=== PATIENT | female | born 1965 | race African-American/Black ===

== ENCOUNTER 2023-08-12 08:16 | Observation (INO) | payer BC, OTHER ==
--- OUTSIDE RECORDS SUMMARY | 2023-08-12 08:19 | XMS REPORT | Continuity of Care Document ---
Author Name Unknown Address [address] [place] [address] [address] [place] [address] [facility] Address [address] [facility]. 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 Name Role Phone [email or web address] Attending Clinician Aldena ble [email or web address] Admitting Clinician Unavaila ble Payers Payer Name Policy Type Policy Number Effective Date Expirati on Date Source [place] [id number] 2022 00:00:00 Encounters Start Date/Time End Date/Time Encounter Type Admission Type Attending Clinicians Care Facility Care Department Encounter ID Source 2023-03-24 00:00:00 2023-03-24 00:00:00 Outpatient [email or web address] [email or web address]_S PRIV PRIV [id number] [facility] 2023-02-12 00:00:00 2023-02-12 00:00:00 Outpatient [email or web address] [email or web address]_S PRIV PRIV [id number] [facility] 2023-02-12 00:00:00 2023-02-12 00:00:00 Outpatient [email or web address] diyala_S PRIV PRIV [id number] [facility] 2023-02-09 00:00:00 2023-02-09 00:00:00 Outpatient [email or web address] diyala_S PRIV PRIV [id number] [facility] 2023-02-09 00:00:00 2023-02-09 00:00:00 Outpatient [email or web address] diyala_S PRIV PRIV [id number] [facility] 2023-01-06 00:00:00 2023-01-06 00:00:00 Outpatient [email or web address]_Ka robert_Kelsie [facility] [id number] [facility]
[2023-08-12] MEDS ORDERED: FAMOTIDINE 20 MG/2 ML VIAL IV ONE (08:43)
--- NOTE | 2023-08-12 08:56 | RAD REPORT ---
EXAM DESCRIPTION: RAD - Chest Single View - 08/12/2023 8:49 am CLINICAL HISTORY: Chest pain;SOB COMPARISON: CHEST PA AND LAT 2 VIEW dated 03/05/2009 FINDINGS: Lines: None. Lungs: No evidence of edema or pneumonia. Pleural: No significant pleural effusions or pneumothorax. Cardiac: The heart size is within normal limits. Mediastinum: Within normal limits. Bones: No acute fractures. Other: None IMPRESSION: No acute cardiopulmonary disease.
[2023-08-12 08:58] LABS: Absolute Basophils 0.1 K/uL (0-0.5); Absolute Eosinophils 0.1 K/uL (0-0.5); Absolute Monocytes 0.8 K/uL (0.1-1.3); Absolute Neutrophil 6.1 K/uL (1.8-8.0); Basophils % 0.6 % (0-1.3); Eosinophils % 0.9 % (0-4.4); Hemoglobin 12.3 g/dL (12.0-15.0); Lymphocytes % 22.5 % (15.3-44.8); MCH 30.1 pg (27.0-35.0); MCHC 34.1 g/dL (32.0-36.0); MCV 88.3 fL (80-100); MPV 7.2 fL (7.6-11.3); Monocytes % 8.4 % (3.3-12.3); Neutrophils % 67.6 % (41.7-73.7); Nucleated Red Blood Cells % 0.1 % (0-0); Platelets 390 thou/uL (152-406); RBC Red Blood Cell Count 4.08 M/uL (3.86-4.86); Red Cell Distribution Width 14.2 % (12.1-15.2)
[2023-08-12 08:59] LABS: PT Prothrombin Time 13.3 SECONDS (9.5-12.5); Protime INR 1.22
--- NOTE | 2023-08-12 09:12 | EDPHYS ---
Physician Documentation [facility] Name: Kinjal Vázquez Age: 57 yrs Sex: Female : 1965 Arrival Date: 08/12/2023 Time: 08:16 Bed 6 Private MD: ED Physician Jethro Balderas HPI: 08/11 08:48 This 57 yrs old Black Female presents to ER via EMS with complaints of Chest Pain. [facility] 08:48 The patient or guardian reports chest pain that is located primarily in the substernal kaiser area. Onset: just prior to arrival. The pain does not radiate. Associated signs and symptoms: Pertinent positives: nausea. The chest pain is described as a pressure. Modifying factors: The symptoms are alleviated by nothing. the symptoms are aggravated by nothing. Historical: - Allergies: 08:26 No Known Allergies; iw - Home Meds: 10:13 losartan 50 mg oral tablet daily [Active]; iw - PMHx: 08:26 Hypertensive disorder; Hypercholesterolemia; iw - Immunization history:: Adult Immunizations up to date. - Family history:: not pertinent. - Social history:: Smoking status: Patient denies any tobacco usage or history of. ROS: 08:55 Constitutional: Negative for fever, chills, and weight loss, Eyes: Negative for injury, kaiser pain, redness, and discharge, ENT: Negative for injury, pain, and discharge, Neck: Negative for injury, pain, and swelling, Respiratory: Negative for shortness of breath, cough, wheezing, and pleuritic chest pain, Abdomen/GI: Negative for abdominal pain, nausea, vomiting, diarrhea, and constipation, Back: Negative for injury and pain, : Negative for injury, bleeding, discharge, and swelling, MS/Extremity: Negative for injury and deformity, Skin: Negative for injury, rash, and discoloration, Neuro: Negative for headache, weakness, numbness, tingling, and seizure, Psych: Negative for depression, anxiety, suicide ideation, homicidal ideation, and hallucinations, Allergy/Immunology: Negative for hives, rash, and allergies, Endocrine: Negative for neck swelling, polydipsia, polyuria, polyphagia, and marked weight changes, Hematologic/Lymphatic: Negative for swollen nodes, abnormal bleeding, and unusual bruising, 08:55 Cardiovascular: Positive for chest pain, of the chest, Exam: 09:04 Constitutional: This is a well developed, well nourished patient who is awake, alert, kaiser and in no acute distress. Head/Face: Normocephalic, atraumatic. Eyes: Pupils equal round and reactive to light, extra-ocular motions intact. Lids and lashes normal. Conjunctiva and sclera are non-icteric and not injected. Cornea within normal limits. Periorbital areas with no swelling, redness, or edema. ENT: Nares patent. No nasal discharge, no septal abnormalities noted. Tympanic membranes are normal and external auditory canals are clear. Oropharynx with no redness, swelling, or masses, exudates, or evidence of obstruction, uvula midline. Mucous membranes moist. Neck: Trachea midline, no thyromegaly or masses palpated, and no cervical lymphadenopathy. Supple, full range of motion without nuchal rigidity, or vertebral point tenderness. No Meningismus. Chest/axilla: Normal chest wall appearance and motion. Nontender with no deformity. No lesions are appreciated. Cardiovascular: Regular rate and rhythm with a normal S1 and S2. No gallops, murmurs, or rubs. Normal PMI, no JVD. No pulse deficits. Respiratory: Lungs have equal breath sounds bilaterally, clear to auscultation and percussion. No rales, rhonchi or wheezes noted. No increased work of breathing, no retractions or nasal flaring. Abdomen/GI: Soft, non-tender, with normal bowel sounds. No distension or tympany. No guarding or rebound. No evidence of tenderness throughout. Back: No spinal tenderness. No costovertebral tenderness. Full range of motion. Female : Normal external genitalia. Skin: Warm, dry with normal turgor. Normal color with no rashes, no lesions, and no evidence of cellulitis. MS/ Extremity: Pulses equal, no cyanosis. Neurovascular intact. Full, normal range of motion. Neuro: Awake and alert, GCS 15, oriented to person, place, time, and situation. Cranial nerves II-XII grossly intact. Motor strength 5/5 in all extremities. Sensory grossly intact. Cerebellar exam normal. Normal gait. Psych: Awake, alert, with orientation to person, place and time. Behavior, mood, and affect are within normal limits. 09:23 ECG was reviewed by the Attending Physician. [facility] 09:24 ECG was reviewed by the Attending Physician. [facility] Vital Signs: 08:25 BP 135 / 81; Pulse 66; Resp 18; Temp 97.9; Pulse Ox 100% on R/A; Weight 80.29 kg; iw Height 5 ft. 7 in. ; Pain 0/10; 09:17 BP 131 / 76; Pulse 74; Resp 16; Pulse Ox 100% on R/A; Pain 8/10; iw 08:25 Body Mass Index 27.72 (80.29 kg, 170.18 cm) iw 08:25 Pain Scale: Adult iw 09:17 Pain Scale: Adult iw MDM: 08:36 Patient medically screened. kaiser 09:07 Differential diagnosis: abnormal EKG, acute myocardial infarction, acute pericarditis, kaiser anxiety, coronary artery disease chest wall pain, costochondritis, gastroesophageal reflux disease (GERD), hiatal hernia, pancreatitis, peptic ulcer disease, pleurisy, pulmonary embolus, stable angina, thoracic aortic disection, unstable angina. HEART Score: History: Moderately Suspicious (1), ECG: Normal (0), Age: > 45 and < 65 years (1), Risk Factors: > or = 3 Risk factors for atherosclerotic disease (2), [Hypercholesterolemia] [Hypertension] [+ Family HX] [Obesity] Troponin: < or = 1 x Normal Limit (0). The patient was given aspirin in the Emergency Department. ANTHONY Risk Score: 1 - Three or more CAD risk factors, 1 - Recent [<24hrs] Severe Angina, TOTAL SCORE = 2. Data reviewed: vital signs, nurses notes, EMS record, lab test result(s), EKG, radiologic studies, plain films. Consideration of Admission/Observation Patient was admitted/placed on observation. Escalation of care including admission/observation considered. I considered the following discharge prescriptions or medication management in the emergency department Medications were administered in the Emergency Department. See MAR. Test considered but Not performed: Ultrasound no 2 d echo. 08/11 08:19 Order name: Basic Metabolic Panel; Complete Time: 10: eb 08/11 08:19 Order name: CBC with Diff; Complete Time: 09:24 eb 08/11 08:19 Order name: LFT's; Complete Time: 10: eb 08/11 08:19 Order name: Magnesium; Complete Time: :08/11 08:19 Order name: NT PRO-BNP; Complete Time: 10: eb 08/11 08:19 Order name: PT-INR; Complete Time: 09:24 eb 08/11 08:19 Order name: Troponin HS; Complete Time: 10:22 eb 08/11 08:19 Order name: Lipase; Complete Time: 10:22 eb 08/11 08:38 Order name: Urinalysis w/ reflexes; Complete Time: 10:22 [facility] 08/11 10:23 Order name: Urine Culture [facility] 08/11 12:15 Order name: Potassium [facility] 08/11 12:15 Order name: Troponin High Sensitivity [facility] 08/11 08:19 Order name: XRAY Chest (1 view); Complete Time: 09:24 eb 08/11 09:23 Order name: CT Aorta for Dissection [facility] 08/11 10:18 Order name: CT; Complete Time: 10:22 [facility] 08/11 10:23 Order name: US Abdomen Limited [facility] 08/11 11:38 Order name: US; Complete Time: 12:06 [facility] 08/11 08:19 Order name: EKG; Complete Time: 08:20 08/11 09:11 Order name: EKG; Complete Time: 09:11 [facility] 08/11 09:18 Order name: CONS Physician Consult [facility] 08/11 08:19 Order name: Cardiac monitoring; Complete Time: 08:44 eb 08/11 08:19 Order name: EKG - Nurse/Tech; Complete Time: 08:25 eb 08/11 08:19 Order name: IV Saline Lock; Complete Time: 08:47 eb 08/11 08:19 Order name: Labs collected and sent; Complete Time: 08:47 08/11 08:19 Order name: O2 Per Protocol; Complete Time: 08:44 eb 08/11 08:19 Order name: O2 Sat Monitoring; Complete Time: 08:44 eb 08/11 09:11 Order name: EKG - Nurse/Tech; Complete Time: 09:16 [facility] EC:23 Rate is 65 beats/min. Rhythm is regular. QRS Cornish is Normal. CT interval is normal. QRS kaiser interval is normal. QT interval is normal. No Q waves. T waves are Normal. No ST changes noted. Clinical impression: Normal ECG and No evidence of ischemia. Interpreted by me. Reviewed by me. 09:24 Rate is 67 beats/min. Rhythm is regular. QRS Cornish is Normal. CT interval is normal. QRS kaiser interval is normal. QT interval is normal. No Q waves. T waves are Normal. No ST changes noted. Clinical impression: Normal ECG and No evidence of ischemia. Interpreted by me. Reviewed by me. Administered Medications: 08:53 Drug: Famotidine IVP 20 mg IVP once; dilute with 10 mL 0.9% NaCl; give over 2 minutes iw Route: IVP; Site: right antecubital; 09:30 Follow up: Response: No adverse reaction iw 10:51 Drug: Enoxaparin Sub-Q 1 mg/kg Sub-Q once Route: Sub-Q; Site: right lower abdomen; iw 11:20 Follow up: Response: No adverse reaction iw 11:27 Not Given (Patient Refused): morphineor iv 4 mg IVP once over 4 mins iw 11:27 Not Given (Patient Refused): ondansetron 4 mg IVP once; over 2 minutes iw 12:35 Drug: Rocephin IV 1 grams IV at per protocol once; Given slow IV push per pharmacy iw instructions Route: IV; Rate: per protocol; Site: right antecubital; 12:40 Follow up: IV Status: Completed infusion iw Disposition Summary: 08/12/23 09:12 Hospitalization Ordered Notes: Hospitalization Status: Observation kaiser Provider: Madan Nina kaiser Condition: Fair kaiser Problem: new kaiser Symptoms: have improved kaiser Bed/Room Type: Standard kaiser Location: Telemetry/MedSurg (observation)(08/12/23 12:28) eb Room Assignment: [facility](08/12/23 12:28) eb Diagnosis - Chest pain, unspecified kaiser - Angina pectoris, unspecified kaiser - UTI/ Urinary tract infection, site not specified kaiser - Other cholelithiasis without obstruction - SLUDGE kaiser Forms: - Medication Reconciliation Form kaiser - SBAR form kaiser - Leadership Thank You Letter kaiser Signatures: Dispatcher [employer] Jethro Mora MD MD cha Williams, Irene, RN RN iw Svetlana Hines Corrections: (The following items were deleted from the chart) 09:47 09:12 kaiser eb 10:17 09:12 Telemetry/MedSurg (observation) kaiser eb 10:17 09:47 416 eb eb 10:17 10:17 eb eb 12:28 10:17 [facility] ER HOLD eb eb 12:28 10:17 ERHOLD- eb eb
--- NOTE | 2023-08-12 09:12 | ER ---
Nurse's Notes [facility] Name: Kinjal Vázquez Age: 57 yrs Sex: Female : 1965 Arrival Date: 08/12/2023 Time: 08:16 Bed 6 Private MD: Diagnosis: Chest pain, unspecified;Angina pectoris, unspecified;UTI/ Urinary tract infection, site not specified;Other cholelithiasis without obstruction-SLUDGE Presentation: 08/11 08:26 Chief complaint: Patient states: woke up with midsternal chest pain , felt like iw pressure and indigestion, EMS gave [address] [employer], pain now 0/10. Coronavirus screen: At this time, the client does not indicate any symptoms associated with coronavirus-19. Ebola Screen: Patient negative for fever greater than or equal to 101.5 degrees Fahrenheit, and additional compatible Ebola Virus Disease symptoms Patient denies exposure to infectious person. Patient denies travel to an Ebola-affected area in the 21 days before illness onset. No symptoms or risks identified at this time. Initial Sepsis Screen: Does the patient meet any 2 criteria? No. Patient's initial sepsis screen is negative. Does the patient have a suspected source of infection? No. Patient's initial sepsis screen is negative. Risk Assessment: Do you want to hurt yourself or someone else? Patient reports no desire to harm self or others. Onset of symptoms was August 12, 2023. 08:26 Method Of Arrival: [facility] iw 08:26 Acuity: GRAEME 3 iw Historical: - Allergies: 08:26 No Known Allergies; iw - Home Meds: 10:13 losartan 50 mg oral tablet daily [Active]; iw - PMHx: 08:26 Hypertensive disorder; Hypercholesterolemia; iw - Immunization history:: Adult Immunizations up to date. - Family history:: not pertinent. - Social history:: Smoking status: Patient denies any tobacco usage or history of. Screenin:28 [facility] ED Fall Risk Assessment (Adult) Score/Fall Risk Level 0 - 2 = Low Risk. Abuse iw screen: Denies threats or abuse. Denies injuries from another. Nutritional screening: No deficits noted. Tuberculosis screening: No symptoms or risk factors identified. Assessment: 08:27 General: Appears in no apparent distress. Behavior is calm, cooperative. Pain: iw Complains of pain in mid-sternal area. Pain: Pain does not radiate. Pain currently is 0 out of 10 on a pain scale. at worst was 10 out of 10 on a pain scale. Is episodic. Neuro: Level of Consciousness is awake, alert, obeys commands. Cardiovascular: Reports chest pain, Capillary refill < 3 seconds in bilateral fingers Patient's skin is warm and dry. Rhythm is regular. Respiratory: Respiratory effort is even, unlabored, Respiratory pattern is regular, symmetrical. GI: Abdomen is non-distended, Patient currently denies abdominal pain. Derm: Skin is intact, is healthy with good turgor. Musculoskeletal: Range of motion: intact in all extremities. 09:10 Reassessment: pt report increasing chest pain and nausea , Dr. Balderas notified, new iw orders placed. 09:46 Reassessment: pt requests to hold pain meds at this time, pain has resolved , pt iw request to hold lovenox also. 11:19 Reassessment: Patient appears in no apparent distress at this time. Patient and/or iw family updated on plan of care and expected duration. Pain level reassessed. Patient is alert, oriented x 3, equal unlabored respirations, skin warm/dry/pink. Vital Signs: 08:25 BP 135 / 81; Pulse 66; Resp 18; Temp 97.9; Pulse Ox 100% on R/A; Weight 80.29 kg; iw Height 5 ft. 7 in. ; Pain 0/10; 09:17 BP 131 / 76; Pulse 74; Resp 16; Pulse Ox 100% on R/A; Pain 8/10; iw 08:25 Body Mass Index 27.72 (80.29 kg, 170.18 cm) iw 08:25 Pain Scale: Adult iw 09:17 Pain Scale: Adult iw ED Course: 08:18 Patient arrived in ED. eb 08:19 Jethro Balderas MD is Attending Physician. eb 08:25 Cee Denise, RN is Primary Nurse. iw 08:27 Triage completed. iw 08:27 Arm band placed on. iw 08:28 Patient has correct armband on for positive identification. Client placed on continuous iw cardiac and pulse oximetry monitoring. NIBP monitoring applied. Door closed. Warm blanket given. 08:29 full time on. hb 08:47 Initial lab(s) drawn, by me, sent to lab. Inserted saline lock: 22 gauge in right iw antecubital area, using aseptic technique. Blood collected. 08:51 XRAY Chest (1 view) In Process Unspecified. EDPR 09:11 Madan Nina MD is Hospitalizing Provider. [facility] 12:30 Provided Education on: need for admit . iw 13:32 No provider procedures requiring assistance completed. Patient admitted, IV remains in iw place. Administered Medications: 08:53 Drug: Famotidine IVP 20 mg IVP once; dilute with 10 mL 0.9% NaCl; give over 2 minutes iw Route: IVP; Site: right antecubital; 09:30 Follow up: Response: No adverse reaction iw 10:51 Drug: Enoxaparin Sub-Q 1 mg/kg Sub-Q once Route: Sub-Q; Site: right lower abdomen; iw 11:20 Follow up: Response: No adverse reaction iw 11:27 Not Given (Patient Refused): morphineor iv 4 mg IVP once over 4 mins iw 11:27 Not Given (Patient Refused): ondansetron 4 mg IVP once; over 2 minutes iw 12:35 Drug: Rocephin IV 1 grams IV at per protocol once; Given slow IV push per pharmacy iw instructions Route: IV; Rate: per protocol; Site: right antecubital; 12:40 Follow up: IV Status: Completed infusion iw Medication: 08:28 VIS not applicable for this client. iw Outcome: 09:12 Decision to Hospitalize by Provider. [facility] 13:32 Admitted to Med/surg accompanied by tech, family with patient, via wheelchair, room iw 206, Report called to Kelli 13:32 Condition: good 13:32 Discharge instructions given to patient, family, Instructed on the need for admit, Demonstrated understanding of instructions, 13:33 Patient left the ED. iw Signatures: Dispatcher [employer] EDMS Jethro Balderas MD MD cha Williams, Irene, RN RN Ling Gill RN RN hb Botello, Elizabeth eb Corrections: (The following items were deleted from the chart) 08:53 08:25 BP 135 / 81; Pulse 66bpm; Resp 18bpm; Pulse Ox 100% RA; 80.29 kg; Height 5 ft. 7 iw in.; BMI: 27.7; Pain 0/10, Adult; iw
[2023-08-12 09:28] LABS: Specific Gravity 1.027 (1.005-1.030); Sqamous Epithelial <5 /HPF (None Seen); Urine Bacteria >50 /HPF (<20); Urine Bilirubin NEGATIVE (Negative); Urine Blood Negative (Negative); Urine Clarity Extremely Turbid (Clear); Urine Color Yellow (Yellow); Urine Culture Reflex Order NOT NEEDED; Urine Glucose NEGATIVE (Negative); Urine Ketones NEGATIVE (Negative); Urine Microscopic Reflex YN ORDER UMIC; Urine Mucus 3+ /HPF (None Seen); Urine Nitrite 2+ (Negative); Urine Protein TRACE (Negative); Urine RBC <5 /HPF (None Seen); Urine Urobilinogen Normal (Normal); Urine WBC <5 /HPF (<5); Urine pH 5.5 (5.0-7.0)
[2023-08-12 09:41] LABS: ALT/SGPT 62 U/L (13-56); AST/SGOT 114 U/L (15-37); Albumin 3.7 g/dL (3.4-5.0); Albumin/Globulin Ratio 0.9 (1.1-1.8); Alkaline Phosphatase 157 U/L (45-117); Anion Gap 7.8 mEq/L (5.0-15.0); BUN Blood Urea Nitrogen 12 mg/dL (7-18); Bicarbonate 29 mEq/L (21-32); Bilirubin Direct 0.4 mg/dL (0-0.2); Bilirubin Indirect, Calculated 0.4 mg/dL (0.2-0.8); Bilirubin Total 0.8 mg/dL (0.2-1.0); Globulin 4.2 g/dL (2.3-3.5); Glomerular Filtration Rate 61 ml/min (=/>90); Glucose Level 134 mg/dL (74-106); Lipase 32 U/L (13-75); Magnesium 2.1 mg/dL (1.6-2.4); NT PRO-BNP 59 pg/mL (<125); Potassium 3.8 mEq/L (3.5-5.1); Protein, Total 7.9 g/dL (6.4-8.2); Sodium Level 137 mEq/L (136-145)
[2023-08-12] MEDS ORDERED: MORPHINE 4 MG/ML SYR ONE (09:41)
[2023-08-12] MEDS ORDERED: ONDANSETRON 4 MG/2 ML VIAL ONE (09:41)
[2023-08-12] MEDS ORDERED: ENOXAPARIN 80 MG/0.8 ML SQ ONE (09:41)
[2023-08-12 09:44] LABS: Troponin High Sensitivity < 3.0 pg/mL (<58.9)
--- NOTE | 2023-08-12 10:17 | RAD REPORT ---
EXAM DESCRIPTION: CTAngio Aorta For Dissection - 08/12/2023 10:05 am CLINICAL HISTORY: DISSECTION COMPARISON: No comparisons TECHNIQUE: CTA of the chest, abdomen, and pelvis was performed. 3D maximum intensity pixel (MIP) rec onstructions were created of the aorta . All CT scans are performed using dose optimization technique as appropriate and may include automated exposure control or mA/KV adjustment according to patient size. FINDINGS: Thorax: Chest Wall: No abnormal mass Lungs: No acute abnormality. Pleura: No effusions or pneumothorax. Desire/Mediastinum: No lymphadenopathy. Aorta/Pulmonary Arteries: Unremarkable Heart: Normal size. Abdomen/Pelvis: Liver: No acute abnormality or suspicious lesions. Biliary: No biliary ductal dilatation. Stomach: No significant focal abnormality. Duodenum: No significant focal abnormality. Pancreas: No significant abnormality. Spleen: No significant abnormality. Adrenal: No suspicious lesions. Kidney/ureter: No hydronephrosis. No renal calculi. Retroperitoneum: No retroperitoneal adenopathy. Vascular: No aneurysm. Bowel: No significant focal abnormality. Peritoneum: No ascites or free air. Bladder: Grossly unremarkable. Reproductive: No adnexal masses. Bones: No acute fracture. Moderate disc height loss at L5-S1 with trace retrolisthesis. Other: n/a IMPRESSION: No evidence of aortic aneurysm, aortic dissection, or pulmonary embolus identified. No a cute findings identified within the chest, abdomen, or pelvis.
[2023-08-12] MEDS ORDERED: SODIUM CHLORIDE 0.9% 10ML INJ IV PRN (10:57)
[2023-08-12] MEDS ORDERED: ONDANSETRON 4 MG/2 ML VIAL IV PRN (10:57)
[2023-08-12] MEDS ORDERED: MORPHINE 4 MG/ML SYR IV PRN (10:57)
[2023-08-12] MEDS ORDERED: ACETAMINOPHEN 325 MG TABLET PO PRN (11:04)
[2023-08-12 11:13] VITALS: BMI 27.7
--- NOTE | 2023-08-12 11:38 | RAD REPORT ---
EXAM DESCRIPTION: US - Abdomen Exam Limited - 08/12/2023 11:26 am CLINICAL HISTORY: ABD PAIN COMPARISON: Abdomen Pelvis W Contrast dated 09/07/2016 FINDINGS: The gallbladder demonstrates no gallstones. No pericholecystic fluid or gallbladder wall t hickening. The common bile duct is normal measuring 3 mm. Sludge noted at the gallbladder neck. The liver demonstrates no findings of intrahepatic biliary dilatation. IMPRESSION: Unremarkable examination. Negative for cholelithiasis or acute cholecystitis.
--- NOTE | 2023-08-12 11:41 | P.SSS ---
Patient History Date of Service: 08/12/23 Reason for admission: CHEST PAIN History of Present Illness: DIOGENES HAS HTN BY HISTORY. SHE HAS CHEST PAIN LIKE PRESSURE IN LOWER STERNUM WITH RADIATION TO BACK. CT DISSECTION IS NEGATIVE. TROP NEG. D DIMER PENDING. SHE SEEMS TO BE IN SIGNIFICANT DISTRESS. SHE WOKE UP WITH PAIN. Allergies No Known Allergies Allergy (Unverified 08/12/23 10:55) Home medications list reviewed: Yes Review of Systems 10-point ROS is otherwise unremarkable Cardiovascular: Chest Pain Physical Examination - Physical Exam General: Alert, In no apparent distress HEENT: Atraumatic, PERRLA, Mucous membr. moist/pink, EOMI, Sclerae nonicteric Neck: Supple, 2+ carotid pulse no bruit, No LAD, Without JVD or thyroid abnormality Respiratory: Clear to auscultation bilaterally, Normal air movement Cardiovascular: Regular rate/rhythm, Normal S1 S2 Gastrointestinal: Normal bowel sounds, No tenderness Musculoskeletal: No tenderness Integumentary: No rashes Neurological: Normal gait, Normal speech, Normal strength at 5/5 x4 extr, Normal tone, Normal affect Lymphatics: No axilla or inguinal lymphadenopathy - Studies Laboratory Data (last 24 hrs) 08/12/23 08/12/23 08/12/23 08:42 08:42 08:42 WBC 9.10 Hgb 12.3 Hct 36.0 Plt Count 390 PT 13.3 H INR 1.22 Sodium 137 Potassium 3.8 BUN 12 Creatinine 1.06 H Glucose 134 H Magnesium 2.1 Total Bilirubin 0.8 AST 114 H ALT 62 H Alkaline Phosphatase 157 H Lipase 32 - Diagnosis (Problem(s)) (1) Atypical chest pain Current Visit: Yes Status: Acute Plan: CE NEG TROP NEG. DISSECTION PROTOCOL NEG. SONOGRAM. SLUDGE IN GB ORDER HIDA SCAN. - Disposition Disposition: ROUTINE DISCHARGE
[2023-08-12 12:14] LABS: Potassium 3.9 mEq/L (3.5-5.1)
[2023-08-12] MEDS ORDERED: CEFTRIAXONE 1000 MG/VIAL ONE (12:28)
--- NOTE | 2023-08-12 13:57 | P.CNS ---
Date of Consult: 08/12/23 Chief Complaint: CHEST PAIN History of Present Illness: patient with PMH of HTN, HLD presented with chest pressure sensation that woke her up from sleep, pressure in nature, middle of the chest, no radiation, no other associated symptoms. Allergies No Known Allergies Allergy (Unverified 08/12/23 10:55) Review of Systems 10-point ROS is otherwise unremarkable Physical Examination Temp Pulse Resp BP Pulse Ox 97.9 F 74 16 131/76 08/12/23 13:36 08/12/23 13:38 08/12/23 13:38 08/12/23 13:38 General: Alert, Oriented x3 HEENT: Atraumatic Neck: Supple Respiratory: Clear to auscultation bilaterally Cardiovascular: No edema, Normal S1 S2 Gastrointestinal: Normal bowel sounds Laboratory Data (last 24 hrs) 08/12/23 08/12/23 08/12/23 08:42 08:42 08:42 WBC 9.10 Hgb 12.3 Hct 36.0 Plt Count 390 PT 13.3 H INR 1.22 Sodium 137 Potassium 3.8 BUN 12 Creatinine 1.06 H Glucose 134 H Magnesium 2.1 Total Bilirubin 0.8 AST 114 H ALT 62 H Alkaline Phosphatase 157 H Lipase 32 - Problems (1) Chest pain Current Visit: Yes Status: Acute Plan: first set of troponin is normal, EKG shows no significant ST-T wave changes. Continue to trend cardiac enzymes x3 sets, 8 hours apart if inpatient then plan for nuclear stress test on monday. continue ASA 81 mg daily
[2023-08-12] MEDS ORDERED: FAMOTIDINE 20 MG/2 ML VIAL IV SCH (21:00)
[2023-08-12] MEDS: PANTOPRAZOLE 40 MG INJ IVP SCH (21:27)
[2023-08-12] MEDS: ENOXAPARIN 80 MG/0.8 ML SQ SCH (21:27)
[2023-08-13 07:38] LABS: Absolute Basophils 0.1 K/uL (0-0.5); Absolute Eosinophils 0.1 K/uL (0-0.5); Absolute Lymphocytes (CBC) 1.6 K/uL (0.7-4.9); Absolute Monocytes 0.8 K/uL (0.1-1.3); Absolute Neutrophil 2.2 K/uL (1.8-8.0); Basophils % 1.3 % (0-1.3); Eosinophils % 1.8 % (0-4.4); Hemoglobin 12.1 g/dL (12.0-15.0); Lymphocytes % 34.9 % (15.3-44.8); MCH 30.4 pg (27.0-35.0); MCHC 34.4 g/dL (32.0-36.0); MCV 88.4 fL (80-100); MPV 7.3 fL (7.6-11.3); Monocytes % 16.6 % (3.3-12.3); Neutrophils % 45.4 % (41.7-73.7); Platelets 355 thou/uL (152-406); RBC Red Blood Cell Count 3.96 M/uL (3.86-4.86); Red Cell Distribution Width 14.4 % (12.1-15.2)
[2023-08-13] MEDS ORDERED: POTASSIUM 25 MEQ EFFERV TAB PO SCH (09:00)
[2023-08-13] MEDS ORDERED: LOSARTAN/HCTZ 50-12.5 PO SCH (09:00)
[2023-08-13] MEDS: LEVOTHYROXINE SOD 0.025 MG TAB PO SCH (09:20)
[2023-08-13] MEDS: LOSARTAN POTASSIUM 50 MG TABLET PO SCH (09:20)
[2023-08-13] MEDS: ASPIRIN EC 81 MG TAB PO SCH (09:20)
--- NOTE | 2023-08-13 13:10 | P.PN ---
Subjective Date of Service: 08/13/23 Chief Complaint: CHEST PAIN Subjective: No new changes Review of Systems 10-point ROS is otherwise unremarkable Physical Examination - Vital Signs Temperature: 98.0 F Blood Pressure: 118/54 Pulse: 73 Respirations: 16 Pulse Ox (%): 98 - Physical Exam General: Alert, Oriented x3 HEENT: Atraumatic Neck: Supple Respiratory: Clear to auscultation bilaterally Cardiovascular: No edema, Normal S1 S2 Gastrointestinal: Normal bowel sounds Assessment And Plan - Current Problems (Diagnosis) (1) Chest pain Current Visit: Yes Status: Acute Plan: Troponin negative x 3 NPO for nuclear stress test in am. continue ASA 81 mg daily
--- NOTE | 2023-08-13 21:10 | P.PN ---
Subjective Date of Service: 08/13/23 Chief Complaint: CHEST PAIN Subjective: Improving (THERE IS NO CHEST PAIN. 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.) Review of Systems 10-point ROS is otherwise unremarkable General: As per HPI Physical Examination - Vital Signs Temperature: 98.2 F Blood Pressure: 116/62 Pulse: 71 Respirations: 16 Pulse Ox (%): 98 - Physical Exam General: Alert, In no apparent distress HEENT: Atraumatic, PERRLA, EOMI Neck: Supple, JVD not distended Respiratory: Clear to auscultation bilaterally, Normal air movement Cardiovascular: Regular rate/rhythm, Normal S1 S2 Gastrointestinal: Normal bowel sounds, No tenderness Musculoskeletal: No tenderness Integumentary: No rashes Neurological: Normal speech, Normal tone, Normal affect Lymphatics: No axilla or inguinal lymphadenopathy - Studies Medications List Reviewed: Yes Assessment And Plan - Current Problems (Diagnosis) (1) Atypical chest pain Current Visit: Yes Status: Acute Plan: CE NEG TROP NEG. DISSECTION PROTOCOL NEG. SONOGRAM. SLUDGE IN GB ORDER HIDA SCAN. 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 WILL CANCEL HIDA SCAN SHE CAN'T DO BOTH IN AM.
[2023-08-14] MEDS ORDERED: REGADENOSON 0.4 MG/5 ML SYR IV ONE (10:18)
--- NOTE | 2023-08-14 11:18 | RAD REPORT ---
EXAM DESCRIPTION: NM - Rest Stress Cardiac Imaging - 08/14/2023 10:49 am CLINICAL HISTORY: CP Chest pain. COMPARISON: No comparisons TECHNIQUE: The patient was administered approximately 10mCi of Tc 99m Sestamibi prior to resting SPE CT imaging of the heart. The patient was then administered approximately 30 mCi of Tc 99m Sestamibi f ollowing exercise or pharmacologic stress. Multiplanar SPECT images were reviewed. FINDINGS: There is moderate sized area of mild stress-induced ischemia involving the LV inferior wal l extending along the septum. No fixed defect is seen to suggest hibernating myocardium or scarred my ocardium. The end diastolic volume is 65 ml, the end systolic volume is 19 ml, and the ejection fraction is 72 %. IMPRESSION: Moderate sized area of mild stress-induced ischemia noted along the LV inferior wall and septum.
[2023-08-14 12:43] VITALS: TEMP 97.4
--- NOTE | 2023-08-14 12:56 | TREADPHA ---
DX: CHEST PAIN Date of Study: 08/14/23 Ht: 5' 7 " Wt: 177 lb 0 oz Consulting Physician: LUZMA MEDICATIONS: ASPIRIN, LOVENOX, COZAAR, PROTONIX HISTORY: . 57 YEAR OLD FEMALE WITH COMPLAINTS OF CHEST PAIN, PRESSURE. HISTORY OF HYPERTENSION, HYPOTHYROID PHYSICIAL EXAMINATION: RESTING B.P.: 142/82 RESTING H.R.: 65 RESTING EKG: PROTOCOL: LEXISCAN EXERCISE TIME: 3:30 B.P. AT PEAK STRESS: 126/69 IMPRESSION: LEXISCAN INJECTED. CARDIOLITE INJECTED - SEE NUCLEAR MEDICINE REPORT. NO CHEST PAIN. NO SUPRA VENTRICULAR TACHYCARDIA, VENTRICULAR TACHYCARDIA. NO CARDIAC ARRHYTHMIAS NOTED. PATIENT COMPLANTS OF NAUSEA.
[2023-08-14] MEDS ORDERED: MIDAZOLAM HCL 2 MG/2 ML INJ ONE (14:08)
[2023-08-14] MEDS ORDERED: HEPA 1000U/500MLS 2,000 UNIT/1,000 ML BAG IV ONE (14:08)
[2023-08-14] MEDS ORDERED: LIDOCAINE 1% 20 ML MDV ONE (14:08)
[2023-08-14] MEDS ORDERED: VERAPAMIL HCL 10 MG/4 ML VIAL IV ONE (14:08)
[2023-08-14] MEDS ORDERED: FENTANYL CITR 100 MCG/2 ML ONE (14:08)
[2023-08-14] MEDS ORDERED: HEPARIN 10,000 UNIT/10 ML VIAL IV ONE (14:09)
[2023-08-14] MEDS ORDERED: HEPARIN 5000 UNIT/ML 1 ML VIAL ONE (14:09)
[2023-08-14] MEDS ORDERED: ATROPINE SULF 1 MG/10 ML SYR IV ONE (14:09)
[2023-08-14] MEDS ORDERED: TICAGRELOR 90 MG TABLET PO ONE (14:09)
[2023-08-14] MEDS ORDERED: CLOPIDOGREL 75 MG TABLET ONE (14:10)
[2023-08-14] MEDS ORDERED: ASPIRIN 325 MG TAB ONE (14:10)
[2023-08-14] MEDS ORDERED: NA CHLORIDE 0.9% 500 ML ONE (14:39)
[2023-08-14] MEDS ORDERED: ONDANSETRON 4 MG/2 ML VIAL ONE (15:02)
--- NOTE | 2023-08-14 16:07 | OP ---
Date of Procedure: 08/14/2023 Surgeon: ZENA NGUYEN Procedures Performed: 1.Selective coronary angiogram. 2.Left heart catheterization. Indication: Chest pain with abnormal stress test suggestive of unstable angina. Access: Right radial artery 6-Swazi closed with TR band. Complications: None. Bleeding: Less than 20 mL. Anesthesia: Total sedation time was 30 minutes, used fentanyl and Versed. Description Of Procedure: After risks, benefits, alternatives were explained, patient agreed to proc edure and signed informed consent. Patient was brought into the cardiac catheterization laboratory, prepped and draped in the usual sterile fashion. Then, I accessed right radial artery using Quvium c micropuncture kit, placed a 6-Swazi Slender sheath and took 5-Swazi [place] 4.0 catheter over a J-w berny into the aortic root across the aortic valve, measured the LVEDP. Pullback did not record any si gnificant gradient. Then we engaged the RCA and took standard views and in the left main, took stand ronald views and then removed the catheter and the sheath, placed TR band with good hemostasis. Findings: 1.Left main; large and normal. 2.LAD; normal with normal diagonal branches. 3.Left circumflex; it is moderate size and normal. 4.RCA; large and dominant and normal. 5.LVEDP borderline elevated at 14 mmHg. Conclusion: 1.Normal coronary arteries. 2.Borderline elevated LVEDP. Recommendation: Medical management. /ZEB Voice ID: [id number] Report ID: [id number]
[2023-08-14 17:11] VITALS: BP 138/60; O2SAT 100
--- NOTE | 2023-08-14 17:23 | P.DS ---
Admission Date: 08/12/23 Discharge Date: 08/14/23 Disposition: ROUTINE DISCHARGE Discharge Condition: FAIR Reason for Admission: CHEST PAIN - Problems (1) Atypical chest pain Current Visit: Yes Status: Acute Brief History of Present Illness: DIOGENES HAS HTN BY HISTORY. SHE HAS CHEST PAIN LIKE PRESSURE IN LOWER STERNUM WITH RADIATION TO BACK. CT DISSECTION IS NEGATIVE. TROP NEG. D DIMER PENDING. SHE SEEMS TO BE IN SIGNIFICANT DISTRESS. SHE WOKE UP WITH PAIN. Hospital Course: DIOGENES CAME WITH CHEST PAIN AND RADIATION TO BACK. SHE HAD NORMAL CT DISSECTION PROTOCOL. SHE HAD ST TEST TODAY THAT WAS REPORTED POSITIVE BUT ANGIOGRAM ISNEGATIVE. SHE WILL GO HOME. SHE WILL AVOID ALL FATTY FOODS. I WILL SEE HER IN OFFICE IN ONE WEEK. IF MORE PAIN THEN WILL ORDER HIDA SCAN. Vital Signs/Physical Exam: Temp Pulse Resp BP Pulse Ox 97.4 F 73 16 138/60 99 08/14/23 12:00 08/14/23 16:45 08/14/23 16:45 08/14/23 16:45 08/14/23 12:00 Laboratory Data at Discharge: WBC 4.70 thou/uL (4.3-10.9) 08/13/23 07:23 Hgb 12.1 g/dL (12.0-15.0) 08/13/23 07:23 Hct 35.0 % (36.0-45.0) L 08/13/23 07:23 Plt Count 355 thou/uL (152-406) 08/13/23 07:23 PT 13.3 SECONDS (9.5-12.5) H 08/12/23 08:42 INR 1.22 08/12/23 08:42 Sodium 135 mEq/L (136-145) L 08/13/23 07:23 Potassium 4.0 mEq/L (3.5-5.1) 08/13/23 07:23 BUN 11 mg/dL (7-18) 08/13/23 07:23 Creatinine 0.93 mg/dL (0.55-1.02) 08/13/23 07:23 Glucose 116 mg/dL (74-106) H 08/13/23 07:23 Magnesium 2.1 mg/dL (1.6-2.4) 08/12/23 08:42 Total Bilirubin 0.8 mg/dL (0.2-1.0) 08/12/23 08:42 AST 114 U/L (15-37) H 08/12/23 08:42 ALT 62 U/L (13-56) H 08/12/23 08:42 Alkaline Phosphatase 157 U/L (45-117) H 08/12/23 08:42 Lipase 32 U/L (13-75) 08/12/23 08:42 Home Medications: Levothyroxine Sodium 25 mcg PO DAILY 08/12/23 Losartan Potassium [Cozaar*] 50 mg PO DAILY 08/12/23 Physician Discharge Instructions: PROBLEM: Chest Pain GOAL: Clear understanding of disease process INSTRUCTIONS: See instructions for radial site care Follow up with Dr Nina in 1 week Follow up with Cardiology in 1 week Return to ER for any emergency Diet: Heart Healthy Activity: As Toelrated Continue Home medications as prescribed Followup: Madan Nina MD [Primary Care Provider] - Olaf Park MD [ACTIVE - CAN ADMIT] -
--- NOTE | 2023-08-18 17:49 | EKG ---
Test Date: 2023-08-12 Test Time: 08:22:31 [place] Operator: HUYEN MEASUREMENT RESULTS: Intervals: Rate: 65 NV: 160 QRSD: 76 QT: 436 QTc: 453 [place]: P: 35 NV: 160 QRS: 13 T: 15 INTERPRETIVE STATEMENTS: Normal sinus rhythm Normal ECG Compared to ECG 06/01/2012 09:58:09 No significant changes Electronically Signed On 08-18-23 17:32:00 CDT by Olaf Park
--- NOTE | 2023-08-18 17:49 | EKG ---
Test Date: 2023-08-12 Test Time: 09:13:07 [place] Laboratory Assistant: HUYEN MEASUREMENT RESULTS: Intervals: Rate: 67 UT: 166 QRSD: 78 QT: 436 QTc: 460 [place]: P: 30 UT: 166 QRS: 11 T: 20 INTERPRETIVE STATEMENTS: Normal sinus rhythm Normal ECG Compared to ECG 08/12/2023 08:22:31 No significant changes Electronically Signed On 08-18-23 17:31:58 CDT by Olaf Park
== END 2023-08-14 18:16 | disposition home or self-care (01) ==
LOC: ER 08:16 → ERHOLD 09:13 → 2ND 12:59
PROVIDERS: ADMIT Internal Medicine; ATTEND Internal Medicine
PROC: 4A023N7 Measurement of Cardiac Sampling and Pressure, Left Heart, Percutaneous Approach (ICD-10-PCS; principal; 2023-08-14)
PROC: B2111ZZ Fluoroscopy of Multiple Coronary Arteries using Low Osmolar Contrast (ICD-10-PCS; 2023-08-14)
DX: R07.89 Other chest pain (principal); R94.39 Abnormal result of other cardiovascular function study; I10 Essential (primary) hypertension; E78.5 Hyperlipidemia, unspecified; E03.9 Hypothyroidism, unspecified; Z79.899 Other long term (current) drug therapy
CPT/HCPCS: 93005 ×2; 93017; 87088; 85025 ×2; 81001; 87086; 80048 ×2; 36415; 83735; 84132; 85610; 85379; 80076; 84484 ×4; 83690; 83880; 71275; 74175; 71045; 93458; 76937; 76705; 78452; 96375; 96372; 96374; 99285; Q9967; C1893; Q9966; J1644; J2785; J2001; C9113 ×3; J2250; J3010; J2405; G0378 ×7; J7040; J0696; A9500; 99152; 99153; J0461

== ENCOUNTER 2025-01-13 13:59 | Emergency (ER) | payer BC, OTHER ==
--- OUTSIDE RECORDS SUMMARY | 2025-01-13 14:02 | XMS REPORT | Continuity of Care Document ---
Author Name Unknown Address [address] [place] [address] [place] [address] [address] [place] [address] Care Team Providers Care Pet House Sitter Name Role Phone [email or web address] Attending Clinician Unavaila ble [email or web address] Admitting Clinician Unavaila ble Payers Payer Name Policy Type Policy Number Effective Date Expirati on Date Source [place] [id number] 00:00:00
[2025-01-13] MEDS ORDERED: NA CHLORIDE 0.9% 1,000 ML ONE (14:22)
[2025-01-13 14:23] LABS: Absolute Lymphocytes (CBC) 2.4 K/uL (0.7-4.9); Hematocrit 37.5 % (36.0-45.0); Hemoglobin 12.6 g/dL (12.0-15.0); MCH 29.0 pg (27.0-35.0); MCHC 33.5 g/dL (32.0-36.0); MCV 86.5 fL (80-100); MPV 7.4 fL (7.6-11.3); Nucleated RBC Absolute Count 0.0 (0-0); Nucleated Red Blood Cells % 0.1 % (0-0); RBC Red Blood Cell Count 4.34 M/uL (3.86-4.86); White Blood Count 6.80 thou/uL (4.3-10.9)
[2025-01-13 14:27] LABS: PT Prothrombin Time 12.7 SECONDS (10-13.0); Protime INR 1.13
[2025-01-13 14:42] LABS: ALT/SGPT 34 U/L (13-56); Albumin 4.1 g/dL (3.4-5.0); Albumin/Globulin Ratio 1.1 (1.1-1.8); Alkaline Phosphatase 120 U/L (45-117); Anion Gap 13.1 mEq/L (5.0-15.0); BUN Blood Urea Nitrogen 13 mg/dL (7-18); Globulin 3.6 g/dL (2.3-3.5); Glucose Level 105 mg/dL (74-106); Lipase 25 U/L (13-75); NT PRO-BNP 93 pg/mL (<125); Troponin High Sensitivity 3.4 pg/mL (<58.9)
[2025-01-13 14:44] LABS: AST/SGOT 24 U/L (15-37); Bilirubin Indirect, Calculated 0.2 mg/dL (0.2-0.8); Magnesium 1.9 mg/dL (1.6-2.4); Potassium 4.1 mEq/L (3.5-5.1)
--- NOTE | 2025-01-13 14:49 | RAD REPORT ---
EXAMINATION: Head C Spine Mpr Wo Con CLINICAL INDICATION: Female, 59 years old. PAIN TECHNIQUE: Axial CT images from the skull base to the vertex without intravenous contrast. Axial CT i mages through the cervical spine were obtained without intravenous contrast. Sagittal and coronal reformatted images were created from the data set. Coronal and sagittal reformatted images were creat ed from the data set. One or more of the following dose reduction techniques were used: Automated exposure control, adjustment of the mA and/or kV according to patient size, and/or iterative reconstr uction. Unless otherwise specified, incidental findings do not require dedicated imaging follow-up. [id number]. COMPARISON: No prior exams FINDINGS: Head: INTRACRANIAL: No acute intracranial hemorrhage. No acute large vascular territory infarct. No hydroce phalus. No mass effect or midline shift. No significant white matter disease. VASCULATURE: No visualized abnormalities in the arteries or dural venous sinuses. SCALP/SKULL: No calvarial fracture identified. No acute soft tissue abnormality. SINUSES: The visualized paranasal sinuses are mostly clear. No significant mastoid fluid. Cervical spine: ALIGNMENT: The cervical spine has normal alignment without scoliosis or spondylolisthesis. BONE: Vertebral body heights are maintained. No aggressive osseous lesions. DEGENERATIVE: Multilevel cervical spondylosis with evidence of bilateral neural foraminal narrowing. No high grade central spinal stenosis. SOFT TISSUE: No significant abnormalities in the soft tissue of the neck. The visualized lung apices are clear. IMPRESSION: No acute intracranial abnormality. No acute fracture or traumatic malalignment of the cervical spine.
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
[2025-01-13 16:59] VITALS: TEMP 98
[2025-01-13 17:01] VITALS: BP 166/86; O2SAT 98
== END 2025-01-13 15:55 | disposition home or self-care (01) ==
LOC: ER 13:59
DX: S16.1XXA Strain of muscle, fascia and tendon at neck level, initial encounter (principal); S30.1XXA Contusion of abdominal wall, initial encounter; S20.219A Contusion of unspecified front wall of thorax, initial encounter; S20.229A Contusion of unspecified back wall of thorax, initial encounter; V49.49XA Driver injured in collision with other motor vehicles in traffic accident, initial encounter
CPT/HCPCS: 93005; 85025; 80048; 36415; 83735; 85610; 80076; 84484; 83690; 83880; 70450; 72125; 71260; 74177; 71045; 99284; Q9967; J7030